=== PATIENT | female | born 2000 | race Caucasian/White ===

== ENCOUNTER 2021-10-30 09:00 | Inpatient (IN) | payer OTHER ==
[2021-10-30 11:02] VITALS: BP 108/68; PULSE 80; TEMP 98.1; BMI 23.9
== END 2021-10-30 10:50 | disposition home or self-care (01) | DRG 566 ==
LOC: JLDR 09:00
PROVIDERS: ADMIT Obstetrics & Gynecology; ATTEND Obstetrics & Gynecology
DX: O48.0 Post-term pregnancy (principal); Z3A.41 41 weeks gestation of pregnancy
CPT/HCPCS: 59025; G0463-25